=== PATIENT | male | born 1965 | race African-American/Black ===

== ENCOUNTER 2017-05-17 17:07 | Emergency (ER) | payer OTHER, BC ==
[~2017-05-17] VITALS: Ht 182.9 cm; Wt 95.0 kg
[2017-05-17 17:18] VITALS: BP 139/100; PULSE 81; RESP 14; TEMP 98.4
[2017-05-17] MEDS ORDERED: AMLO10CA PO (18:00)
[2017-05-17] MEDS ORDERED: KETOROLAC TROMETHAMINE 60 MG/2 ML (IM) VIAL IM ONE (18:00)
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
[2017-05-17] MEDS ORDERED: IBUP1TAB5 PO (19:10)
== END 2017-05-17 19:30 | disposition home or self-care (01) ==
LOC: NEPD 17:07
DX: S13.4XXA Sprain of ligaments of cervical spine, initial encounter (principal); S29.012A Strain of muscle and tendon of back wall of thorax, initial encounter; I10 Essential (primary) hypertension; Z79.899 Other long term (current) drug therapy; V43.52XA Car driver injured in collision with other type car in traffic accident, initial encounter
CPT/HCPCS: 71020; 72125; 96372; 99285; J1885